=== PATIENT | male | born 1975 | race Caucasian/White ===

== ENCOUNTER 2020-08-10 10:29 | Emergency (ER) | payer BC, OTHER | END 2020-08-10 12:40 | disposition home or self-care (01) | LOC: ER1 10:29 | DX: S92.412A Displaced fracture of proximal phalanx of left great toe, initial encounter for closed fracture (principal); E11.9 Type 2 diabetes mellitus without complications; F17.210 Nicotine dependence, cigarettes, uncomplicated; W22.8XXA Striking against or struck by other objects, initial encounter; Y92.009 Unspecified place in unspecified non-institutional (private) residence as the place of occurrence of the external cause | CPT/HCPCS: 73660; 99283 ==